=== PATIENT | female | born 1955 ===

== ENCOUNTER 2021-02-27 09:45 | Inpatient (IN) | payer OTHER ==
[~2021-02-27] VITALS: Ht 167.6 cm; Wt 98.9 kg
[2021-02-27] MEDS ORDERED: LEVOTHYROXINE25 MCG PO (13:25)
[2021-02-27] MEDS ORDERED: INSULIN SYRING1 EA29 SUBCUTANEO (13:25)
[2021-02-27] MEDS ORDERED: ZOLOFT25 MG PO (13:26)
[2021-02-27] MEDS ORDERED: CLONAZEPAM0.5 MG PO (13:26)
[2021-03-07] MEDS ORDERED: DUI500 PO (11:12)
[2021-03-07] MEDS ORDERED: PERCOCET 5-3251 EACH PO (11:12)
[2021-03-07] MEDS ORDERED: ELIQUIS2.5 MG PO (11:12)
== END 2021-03-07 15:06 | DRG 470 ==
LOC: O/R 03-05 06:20 → SURG 03-05 06:20 → SURH 03-05 09:45 → SURG 03-05 16:11 → SURH 03-05 18:45 → SURG 03-07 15:06
PROVIDERS: ADMIT Orthopaedic Surgery; ATTEND Orthopaedic Surgery
PROC: 0SRC0J9 Replacement of Right Knee Joint with Synthetic Substitute, Cemented, Open Approach (ICD-10-PCS; principal; 2021-03-05 18:45)
DX: M17.11 Unilateral primary osteoarthritis, right knee (principal); D62 Acute posthemorrhagic anemia; E66.8 Other obesity; Z68.35 Body mass index [BMI] 35.0-35.9, adult; I10 Essential (primary) hypertension; E11.9 Type 2 diabetes mellitus without complications; Z79.4 Long term (current) use of insulin